=== PATIENT | female | born 1955 | race Native Hawaiian/Other Pacific Islander ===

== ENCOUNTER 2022-01-06 00:46 | Emergency (ER) | payer OTHER ==
[~2022-01-06] VITALS: Ht 142.2 cm; Wt 89.4 kg
[2022-01-06 01:26] LABS: POTASSIUM 3.6 mmol/L (3.6-5.2)
[2022-01-06 01:47] LABS: PLATELET COUNT 292 K/uL (152-353)
[2022-01-06 02:19] VITALS: BP 165/65; TEMP 98.1
[2022-01-06] MEDS ORDERED: TESSALON PER100 MG PO (09:18)
[2022-01-06] MEDS ORDERED: BISACODYL5 M1 PO (09:19)
[2022-01-06] MEDS ORDERED: CLON0.2D TOP (09:22)
[2022-01-06] MEDS ORDERED: CITALOPRAM HYDR10 MG PO (09:22)
[2022-01-06] MEDS ORDERED: CYCLOBENZAPRINE5 MG PO (09:23)
[2022-01-06] MEDS ORDERED: DIPH25CA90 PO (09:26)
[2022-01-06] MEDS ORDERED: DOK100 MG PO (09:27)
[2022-01-06] MEDS ORDERED: BISACODYL LAXAT10 MG PR (09:28)
[2022-01-06] MEDS ORDERED: ACID CONTROL20 MG PO (09:30)
[2022-01-06] MEDS ORDERED: FLUTICASON50 MCG/AC1 NAS (09:31)
[2022-01-06] MEDS ORDERED: HYDROCODONE BIT1 TAB PO (09:32)
[2022-01-06] MEDS ORDERED: IBUPROFEN200 M1 PO (09:34)
[2022-01-06] MEDS ORDERED: ZESTRIL40 MG PO (09:35)
[2022-01-06] MEDS ORDERED: MELATONIN5 M2 PO (09:36)
[2022-01-06] MEDS ORDERED: METO100T37 PO (09:37)
[2022-01-06] MEDS ORDERED: GNP MUCUS RELI400 MG PO (09:38)
[2022-01-06] MEDS ORDERED: MUPIROCIN2 % TOP (09:39)
[2022-01-06] MEDS ORDERED: GABA300C2 PO (09:40)
[2022-01-06] MEDS ORDERED: OXCARBAZEPIN600 MG PO (09:42)
[2022-01-06] MEDS ORDERED: PRAVASTATIN PO (09:43)
[2022-01-06] MEDS ORDERED: SOD CHLORIDE1 GM PO (09:44)
[2022-01-06] MEDS ORDERED: TRAZODONE HYDR100 MG PO (09:45)
[2022-01-06] MEDS ORDERED: ALPR0.5T24 PO (09:46)
== END 2022-01-06 02:19 | disposition still patient (30) ==
LOC: ED 00:46
PROVIDERS: Hospitalist
DX: F31.89 Other bipolar disorder (principal); F03.91 Unspecified dementia, unspecified severity, with behavioral disturbance; Z11.52 Encounter for screening for COVID-19; Z04.6 Encounter for general psychiatric examination, requested by authority
CPT/HCPCS: 36415; 80053; 81000; 85027; 87635; 93005; 99283; U0003